=== PATIENT | female | born 1985 | race Caucasian/White ===

== ENCOUNTER 2021-09-19 10:28 | Day surgery (SDC) | payer OTHER ==
--- NOTE | 2021-09-19 08:00 | HP ---
DATE OF SURGERY: 09/19/2021 HISTORY OF PRESENT ILLNESS: The patient is a 35-year-old with some rectal bleeding worse with bowel movement and soreness at times, last colonoscopy ten years ago. Family history negative for colon cancer and negative for Crohn's disease. PAST MEDICAL HISTORY: Conversion disorder and pseudoseizures. PAST SURGICAL HISTORY: Hernia repair. Appendectomy. D&C. Left hip surgery. Right toe surgery. Cholecystectomy. Hernia repair in the past. MEDICATIONS: Klonopin, Viibryd, Propylthiouracil. ALLERGIES: AMPICILLIN. WELLBUTRIN. FAMILY HISTORY: Cancer, diabetes. Negative for colon cancer or Crohn's. SOCIAL HISTORY: One pack per day smoker, denies alcohol abuse. REVIEW OF SYSTEMS: Fourteen systems reviewed. No chest pain or palpitations. Other systems negative or noncontributory as above and per preadmission questionnaire. PHYSICAL EXAMINATION: GENERAL: No acute distress. HEENT: Sclerae nonicteric. NECK: No JVD. CHEST: Equal excursion, nonlabored breathing. CVS: Regular rate and rhythm. ABDOMEN: Soft. No peritoneal signs. EXTREMITIES: No significant edema. NEURO: Alert, oriented, moving extremities symmetrically. RECTAL: Internal and external hemorrhoids grade IV. PSYCH: Appropriate mood and affect. IMPRESSION: Rectal bleeding. The patient is in need of colonoscopy as last one was ten years ago. Colonoscopy to rule out other sources. Additionally, the patient desires excision of internal hemorrhoidectomy. Risks and benefits explained in detail including bleeding or infection, risk of bowel injury or perforation, risk of missed or nondiagnosis or incomplete exam, possibly requiring barium enema, other studies or procedures, general risk of anesthesia or sedation, risk of bowel prep. Regarding hemorrhoidectomy, general risk of bleeding or infection, risk of sphincter irritability, spasm or dysfunction. General risk of anesthesia, deep vein thrombosis, pulmonary embolism, pneumonia, risk of stenosis, risk of bleeding, risk of bleeding or infection, risk of incontinence transient or fpc, as well as the real risk of significant pain usually is transient gradually improves but risk of chronic aches and pains but not limited to. The patient understands and will proceed with colonoscopy under general anesthesia along with excision of internal hemorrhoidectomy as an outpatient.
[2021-09-19] MEDS ORDERED: ANUSOL-HC 2.5% CREAM 30 GM TOP ONE (10:29)
[2021-09-19] MEDS ORDERED: EXPAREL 133 MG/10 ML VIAL IJ ONE (10:29)
[2021-09-19] MEDS ORDERED: Lactated Ringers 1,000 ML IV ONE ×2 (10:51→14:03)
[2021-09-19] MEDS ORDERED: Lactated Ringers 1,000 ML IV SCH (11:00)
[2021-09-19] MEDS ORDERED: Transderm Scop 1.5MG Patch TOP PRN (11:09)
[2021-09-19] MEDS ORDERED: Versed 2 MG/2 ML Injection IV ONE (11:10)
[2021-09-19] MEDS ORDERED: Reglan 10 MG/2 ML IV ONE (11:10)
[2021-09-19] MEDS ORDERED: DIPRIVAN 200 MG/20 ML IV ONE (12:08)
[2021-09-19] MEDS ORDERED: Zofran 4 MG/2 ML VIAL ONE (12:10)
[2021-09-19] MEDS ORDERED: Quelicin Fliptop 200 MG/10 ML ONE (12:10)
[2021-09-19] MEDS ORDERED: Decadron 4 MG INJ ONE (12:10)
[2021-09-19] MEDS ORDERED: Xylocaine-Mpf 2% 5 Ml Vial ONE (12:10)
[2021-09-19] MEDS ORDERED: SUBLIMAZE 100 MCG/2 ML ONE ×2 (12:12→13:52)
[2021-09-19] MEDS ORDERED: CLINDAMYCIN-D5W 900 MG/50 ML*** 900 MG/50 ML BAG IV ONE (12:19)
[2021-09-19] MEDS ORDERED: Ephedrine Sulfate 50 MG/ML ONE (12:45)
[2021-09-19] MEDS ORDERED: Zemuron 100 MG/10 ML ONE (13:06)
[2021-09-19] MEDS ORDERED: BRIDION 200MG/2ML IV ONE (13:21)
[2021-09-19] MEDS ORDERED: Hydromorphone 1 mg/ml Injection ONE (13:52)
[2021-09-19 14:52] VITALS: O2SAT 97
[2021-09-19] MEDS ORDERED: Zofran 4 MG/2 ML VIAL IV ONE (15:10)
[2021-09-19 15:32] VITALS: BP 95/55; PULSE 67
--- NOTE | 2021-09-20 09:38 | OP ---
SURGERY DATE/TIME: 09/19/2021 1231 PREOPERATIVE DIAGNOSIS: Rectal bleeding, history of internal and external hemorrhoids grade III to IV. POSTOPERATIVE DIAGNOSES: 1) Two small polyps, one descending colon and one in the sigmoid colon. 2) Grade IV internal and external hemorrhoids. PROCEDURES: 1) Colonoscopy to cecum. 2) Hot biopsy polypectomy small descending colon polyp. 3) Hot biopsy polypectomy small sigmoid colon polyp. 4) Extensive internal and external excisional hemorrhoidectomy (three columns). SURGEON: Dr. Fabrice Beasley. ANESTHESIA: General along with some Exparel. ESTIMATED BLOOD LOSS: Minimal. INDICATIONS: As noted above. Risks and benefits explained in detail but not limited to and consent obtained. DESCRIPTION OF PROCEDURE AND FINDINGS: The patient is taken to the endoscopy room. General anesthesia induced. After official time out and no disagreement with planned procedure, digital rectal exam did not reveal any rectal masses. She had grade IV internal and external hemorrhoids. Video colonoscope inserted and passed up through the tortuous sigmoid, descending, transverse and ascending colon around to the cecum. Appendiceal orifice and valve well visualized and photo documented. Scope slowly and carefully withdrawn over the next eight minutes. Small polyp in descending colon. Small polyp in the sigmoid colon removed with hot biopsy forceps with brief burst of cautery. Good hemostasis noted. Scope pulled back to the rectum. Prep overall was fair. ASA Class II. She was then repositioned. Prepped and draped in usual sterile fashion. No disagreement with planned procedure. Exparel was injected circumferentially around the perirectal/perianal area. Once this was accomplished starting with the left lateral hemorrhoid column starting on the inside mucosa sliver was incised with scalpel carrying out to the perianal skin including external tags. The internal and external hemorrhoids were carefully dissected off of the internal sphincter and passed off. 3-0 Monocryl was used to close the wound in a running fashion from internal to external. Appeared to have good hemostasis at this point. The patient had a smaller component that was a little bit to the right of the midline right posterior position this is a smaller area. Small sliver of mucosa extending out in the redundant skin externally dissection carried down dissecting hemorrhoid component off of the internal sphincter this was then closed internal to external with 3-0 Monocryl. Good hemostasis noted. Attention is then turned to the other much larger component which right anterior lateral dissecting from inside the mucosa. A small segment of mucosa and excising out to the external skin, this hemorrhoid was carefully dissected off the internal sphincter to the rectal mucosa and closed with running 3-0 Monocryl. Good hemostasis was noted. Additional Exparel was injected around the skin incision. It appeared to have adequate hemostasis. Rectal vault irrigated out. A small piece of Surgicel with some Anusol cream was left in the vault. Sterile dressing. The patient tolerated the procedure well. I went out to look for family out in the waiting area. She is to continue titrate soft, bulky stools, avoid straining when she has a bowel movement. Given a script for [place] and script for Valium for PRN rectal spasm, continue sitz baths.
== END 2021-09-19 15:40 | disposition home or self-care (01) ==
LOC: SDC 10:28
PROVIDERS: ATTEND Surgery
DX: K63.5 Polyp of colon (principal); K62.5 Hemorrhage of anus and rectum; Z87.19 Personal history of other diseases of the digestive system; K64.4 Residual hemorrhoidal skin tags; K64.8 Other hemorrhoids; Z80.9 Family history of malignant neoplasm, unspecified
CPT/HCPCS: 81025; J0330; J1100; J1170; J2250; J2405; J2704; J3010; A9270-GY

== ENCOUNTER 2022-09-10 13:21 | Emergency (ER) | payer OTHER ==
[2022-09-10] MEDS ORDERED: Ativan 2 MG/1 ML VIAL IV ONE (13:29)
--- NOTE | 2022-09-10 13:29 | ERPHSYRPT ---
- History of Present Illness Time Seen by Provider: 09/10/22 13:29 Source: patient, EMS Exam Limitations: no limitations, clinical condition Physician History: This is a 36-year-old white female patient of Dr. Eddy who presents to the emergency department by the community engagement representative service because of seizure activity. The patient has a history of pseudoseizures. However, per patient report, this was related to the patient's thyroid. Patient is on PTU medication to treat Graves' disease (hyperthyroidism). She, upon arrival to the emergency department, was awake alert and oriented but did have a couple of 3 to 5 seconds of tonic-clonic seizure activity. She did not receive any medications from the paramedics. Intravenous lines were placed and no blood was drawn. Patient denies head injury. She states that she is not on any seizure medication. She was riding motorcycle throughout the day today then stop to have lunch which is when she had the symptoms. Intermittently, in the last month the patient and the patient's spouse state that she has been having left lower quadrant abdominal pain and bloody bowel movements. Patient does complain of some left lower quadrant abdominal pain here in the emergency department. She was not incontinent of stool or urine. She denies chest pain. She denies shortness of breath. Accu-Chek blood sugar level by the paramedics was 102 Timing/Duration: today Severity: mild Deficits: no difficulties Baseline/Normal Cognition: alert oriented x 3 Current Cognition: alert oriented x 3 Baseline Gait: walks w/o assistance Associated Symptoms: seizures, other (Left lower quadrant abdominal pain) Allergies/Adverse Reactions: ampicillin [Ampicillin] Allergy (Mild, Verified 10/31/21 16:12) bupropion HCl [From Wellbutrin] Allergy (Mild, Verified 10/31/21 16:12) buspirone [From BuSpar] Allergy (Verified 10/31/21 16:12) morphine Allergy (Verified 10/31/21 16:12) Home Medications: propylthiouraciL [Propylthiouracil] 50 mg PO BID 09/07/21 [History] Hx Tetanus, Diphtheria Vaccination/Date Given: Yes Hx Influenza Vaccination/Date Given: No Hx Pneumococcal Vaccination/Date Given: No Travel Risk - International Travel Have you traveled outside of the country in past 3 weeks: No - Coronavirus Screening Are you exhibiting any of the following symptoms?: No Close contact with a COVID-19 positive Pt in past 14-21 Days: No - Review of Systems Constitutional: No Symptoms Eyes: No Symptoms Ears, Nose, & Throat: No Symptoms Respiratory: No Symptoms Cardiac: No Symptoms Abdominal/Gastrointestinal: Abdominal Pain (Lower quadrant abdominal pain), Nausea Genitourinary Symptoms: No Symptoms Musculoskeletal: No Symptoms Skin: No Symptoms Neurological: Seizure Psychological: No Symptoms Endocrine: No Symptoms Hematologic/Lymphatic: No Symptoms Immunological/Allergic: No Symptoms All Other Systems: Reviewed and Negative - Past Medical History Pertinent Past Medical History: Yes Neurological History: No Pertinent History ENT History: No Pertinent History Cardiac History: No Pertinent History Respiratory History: No Pertinent History Endocrine Medical History: Hyperthyroidism Musculoskeletal History: No Pertinent History GI Medical History: No Pertinent History History: No Pertinent History Psycho-Social History: Anxiety Female Reproductive Disorders: No Pertinent History Other Medical History: positive antonio - Past Surgical History Past Surgical History: Yes Neuro Surgical History: No Pertinent History Cardiac: No Pertinent History Respiratory: No Pertinent History Gastrointestinal: Appendectomy, Cholecystectomy, Hernia Repair Genitourinary: No Pertinent History Female Surgical History: Other Other Surgical History: hernia x 2, - Social History Smoking Status: Current every day smoker How long have you smoked: 6 years Exposure to second hand smoke: Yes Drug Use: none Patient Lives Alone: No - Nursing Vital Signs Nursing Vital Signs: Initial Vital Signs Pulse Rate 76 09/10/22 13:23 Respiratory Rate 15 09/10/22 13:23 Blood Pressure 132/87 09/10/22 13:23 O2 Sat by Pulse Oximetry 98 09/10/22 13:23 Pain Scale Pain Intensity 5 - Ilan Coma Scale Best Eye Response (Ilan): (4) open spontaneously Best Verbal Response (Ilan): (5) oriented Best Motor Response (Lian): (6) obeys commands [place] Total: 15 - Physical Exam General Appearance: no apparent distress, alert, anxiety Eye Exam: bilateral eye: normal inspection, PERRL, EOMI Ears, Nose, Throat Exam: normal ENT inspection, moist mucous membranes Neck Exam: normal inspection, non-tender, supple, full range of motion Respiratory: normal breath sounds, lungs clear, airway intact, No chest tenderness, No respiratory distress Cardiovascular: regular rate/rhythm, normal heart sounds, normal peripheral pulses Gastrointestinal: soft, normal bowel sounds, tenderness (Lower quadrant), guarding (Left lower quadrant to palpation), No rebound Pelvic Exam: not done Rectal Exam: not done Back Exam: normal inspection, normal range of motion, No CVA tenderness, No vertebral tenderness Extremity Exam: normal inspection, normal range of motion, pelvis stable Mental Status: alert, oriented x 3, 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 Exam: normal hearing, normal speech, PERRL Coordination/Gait: normal finger to nose, normal gait, normal cerebellar function Motor/Sensory: no motor deficit, no sensory deficit, no pronator drift Skin Exam: normal color, warm, dry SpO2 Interpretation: normal O2 Delivery: Room Air - Course Nursing assessment & vital signs reviewed: Yes EKG Interpreted by Me: RATE (81), Sinus Rhythm, NORMAL AXIS, NORMAL INTERVALS, NORMAL QRS, NORMAL ST-T, Other (No acute ischemic changes on today's twelve-lead EKG) Ordered Tests: Active Orders 24 hr Category Date Time Status Prepared Foods Team Leader STAT Care 09/10/22 13:30 Active Clean Catch Urine Specimen STAT Care 09/10/22 13:29 Active EKG-ER Only STAT Care 09/10/22 13:29 Active IV Insertion STAT Care 09/10/22 13:29 Active Pulse Oximetry (ED) STAT Care 09/10/22 13:29 Active ABDOMEN AND PELVIS W/0 CONTRAS [CT] Stat Exams 09/10/22 14:33 Completed HEAD WITHOUT CONTRAST [CT] Stat Exams 09/10/22 14:31 Completed BLOOD CULTURE Stat Lab 09/10/22 14:15 Received CBC W DIFF Stat Lab 09/10/22 14:00 Completed CMP Stat Lab 09/10/22 14:00 Completed HCG QUALITATIVE, SERUM Stat Lab 09/10/22 14:00 Completed Lactic Acid Stat Lab 09/10/22 13:29 Completed T4 (Thyroxine) Stat Lab 09/10/22 14:00 Completed TSH [TSH, 3RD Generation] Stat Lab 09/10/22 14:00 Completed UA W/RFX UR CULTURE Stat Lab 09/10/22 15:11 Completed Urine Triage Profile Stat Lab 09/10/22 15:11 Completed Medication Summary Generic Name Dose Route Start Last Admin Trade Name Freq PRN Reason Stop Dose Admin Sodium Chloride 1,000 mls @ 100 mls/hr 09/10/22 13:30 09/10/22 13:47 Sodium Chloride 0.9% 1000 Ml IV 10/10/22 13:29 100 mls/hr .Q10H ROBBIE Administration Discontinued Medications Generic Name Dose Route Start Last Admin Trade Name Florentin PRN Reason Stop Dose Admin Hydromorphone HCl 1 mg 09/10/22 13:53 09/10/22 14:09 Hydromorphone 1 Mg/1ml Inj IV 09/10/22 13:54 1 mg STAT ONE Administration Hydromorphone HCl Confirm 09/10/22 13:56 Hydromorphone 1 Mg/1ml Inj Administered 09/10/22 13:57 Dose 1 mg .ROUTE .STK-MED ONE Lorazepam 1 mg 09/10/22 13:29 09/10/22 13:46 Lorazepam 2 Mg/1 Ml 2 Mg Vial IV 09/10/22 13:30 1 mg STAT ONE Administration Lorazepam Confirm 09/10/22 13:44 Lorazepam 2 Mg/1 Ml 2 Mg Vial Administered 09/10/22 13:45 Dose 2 mg .ROUTE .STK-MED ONE Ondansetron HCl Confirm 09/10/22 13:46 Ondansetron Hcl 4 Mg/2 Ml Vial Administered 09/10/22 13:47 Dose 4 mg .ROUTE .STK-MED ONE Ondansetron HCl 4 mg 09/10/22 13:48 09/10/22 13:48 Ondansetron Hcl 4 Mg/2 Ml Vial IV 09/10/22 13:49 4 mg STAT ONE Administration Lab/Rad Data: Laboratory Result Diagrams 09/10/22 14:00 09/10/22 14:00 Laboratory Results 09/10/22 09/10/22 09/10/22 Range/Units 15:11 15:11 14:00 WBC (4.0-10.5) x10^3/uL RBC (4.1-5.4) x10^6/uL Hgb (12.0-16.0) g/dL Hct (35-47) % MCV (78-100) fL MCH (26-32) pg MCHC (32-36) g/dL RDW (11.5-14.0) % Plt Count (150-450) x10^3/uL MPV (7.5-11.0) fL Gran % (36.0-66.0) % Immature Gran % (Auto) (0.00-0.4) % Nucleat RBC Rel Count (0.00-0.1) % Eos # (Auto) (0-0.5) x10^3/uL Immature Gran # (Auto) (0.00-0.03) x10^3u/L Absolute Lymphs (auto) (1.0-4.6) x10^3/uL Absolute Monos (auto) (0.0-1.3) x10^3/uL Absolute Nucleated RBC (0.00-0.01) x10^3u/L Lymphocytes % (24.0-44.0) % Monocytes % (0.0-12.0) % Eosinophils % (0.00-5.0) % Basophils % (0.0-0.4) % Absolute Granulocytes (1.4-6.9) x10^3/uL Basophils # (0-0.4) x10^3/uL Sodium (137-145) mmol/L Potassium (3.5-5.1) mmol/L Chloride (98-107) mmol/L Carbon Dioxide (22-30) mmol/L Anion Gap (5-15) MEQ/L BUN (7-17) mg/dL Creatinine (0.52-1.04) mg/dL Estimated GFR ML/MIN Glucose (74-106) mg/dL Lactic Acid (0.4-2.0) Calcium (8.4-10.2) mg/dL Total Bilirubin (0.2-1.3) mg/dL AST (14-36) U/L ALT (0-35) U/L Alkaline Phosphatase (38-126) U/L Serum Total Protein (6.3-8.2) g/dL Albumin (3.5-5.0) g/dL Thyroxine (T4) 8.63 (5.53-10.96) ug/dL TSH 3rd Generation (0.47-4.68) mIU/L Serum HCG, Qual (NEGATIVE) Urine Color Yellow (Yellow) Urine Appearance Clear (Clear) Urine pH 6.5 (4.6-8.0) Ur Specific [place] <=1.005 (1.005-1.030) Urine Protein Negative (Negative) Urine Glucose (UA) Negative (Negative) mg/dL Urine Ketones Negative (Negative) Urine Blood Negative (Negative) Urine Nitrite Negative (Negative) Urine Bilirubin Negative (Negative) Urine Urobilinogen 0.2 (0.2) mg/dL Ur Leukocyte Esterase Negative (Negative) U Hyaline Cast (Auto) NONE SEEN (0-2) /LPF Urine Microscopic RBC 0-2 (0-5) /HPF Urine Microscopic WBC 0-2 (0-5) /HPF Ur Epithelial Cells None Seen (None Seen) /HPF Urine Bacteria None Seen (None Seen) /HPF Urine Culture Reflexed NO (NO) Urine Opiates Level NEGATIVE (NEGATIVE) Ur Methadone NEGATIVE (NEGATIVE) Urine Barbiturates NEGATIVE (NEGATIVE) Ur Phencyclidine (PCP) NEGATIVE (NEGATIVE) Urine Amphetamine NEGATIVE (NEGATIVE) U Benzodiazepine Level NEGATIVE (NEGATIVE) Urine Cocaine NEGATIVE (NEGATIVE) Urine Marijuana (THC) NEGATIVE (NEGATIVE) 09/10/22 09/10/22 09/10/22 Range/Units 14:00 14:00 14:00 WBC (4.0-10.5) x10^3/uL RBC (4.1-5.4) x10^6/uL Hgb (12.0-16.0) g/dL Hct (35-47) % MCV (78-100) fL MCH (26-32) pg MCHC (32-36) g/dL RDW (11.5-14.0) % Plt Count (150-450) x10^3/uL MPV (7.5-11.0) fL Gran % (36.0-66.0) % Immature Gran % (Auto) (0.00-0.4) % Nucleat RBC Rel Count (0.00-0.1) % Eos # (Auto) (0-0.5) x10^3/uL Immature Gran # (Auto) (0.00-0.03) x10^3u/L Absolute Lymphs (auto) (1.0-4.6) x10^3/uL Absolute Monos (auto) (0.0-1.3) x10^3/uL Absolute Nucleated RBC (0.00-0.01) x10^3u/L Lymphocytes % (24.0-44.0) % Monocytes % (0.0-12.0) % Eosinophils % (0.00-5.0) % Basophils % (0.0-0.4) % Absolute Granulocytes (1.4-6.9) x10^3/uL Basophils # (0-0.4) x10^3/uL Sodium 140 (137-145) mmol/L Potassium 4.2 (3.5-5.1) mmol/L Chloride 104 (98-107) mmol/L Carbon Dioxide 26 (22-30) mmol/L Anion Gap 14.5 (5-15) MEQ/L BUN 8 (7-17) mg/dL Creatinine 0.81 (0.52-1.04) mg/dL Estimated GFR > 60.0 ML/MIN Glucose 101 (74-106) mg/dL Lactic Acid (0.4-2.0) Calcium 9.4 (8.4-10.2) mg/dL Total Bilirubin 0.70 (0.2-1.3) mg/dL AST 23 (14-36) U/L ALT 17 (0-35) U/L Alkaline Phosphatase 28 L (38-126) U/L Serum Total Protein 7.8 (6.3-8.2) g/dL Albumin 4.7 (3.5-5.0) g/dL Thyroxine (T4) (5.53-10.96) ug/dL TSH 3rd Generation 1.300 (0.47-4.68) mIU/L Serum HCG, Qual NEGATIVE (NEGATIVE) Urine Color (Yellow) Urine Appearance (Clear) Urine pH (4.6-8.0) Ur Specific [place] (1.005-1.030) Urine Protein (Negative) Urine Glucose (UA) (Negative) mg/dL Urine Ketones (Negative) Urine Blood (Negative) Urine Nitrite (Negative) Urine Bilirubin (Negative) Urine Urobilinogen (0.2) mg/dL Ur Leukocyte Esterase (Negative) U Hyaline Cast (Auto) (0-2) /LPF Urine Microscopic RBC (0-5) /HPF Urine Microscopic WBC (0-5) /HPF Ur Epithelial Cells (None Seen) /HPF Urine Bacteria (None Seen) /HPF Urine Culture Reflexed (NO) Urine Opiates Level (NEGATIVE) Ur Methadone (NEGATIVE) Urine Barbiturates (NEGATIVE) Ur Phencyclidine (PCP) (NEGATIVE) Urine Amphetamine (NEGATIVE) U Benzodiazepine Level (NEGATIVE) Urine Cocaine (NEGATIVE) Urine Marijuana (THC) (NEGATIVE) 08/06/23 08/06/23 Range/Units 14:00 13:29 WBC 4.9 (4.0-10.5) x10^3/uL RBC 4.81 (4.1-5.4) x10^6/uL Hgb 13.4 (12.0-16.0) g/dL Hct 41.6 (35-47) % MCV 86.5 (78-100) fL MCH 27.9 (26-32) pg MCHC 32.2 (32-36) g/dL RDW 12.7 (11.5-14.0) % Plt Count 176 (150-450) x10^3/uL MPV 11.0 (7.5-11.0) fL Gran % 62.2 (36.0-66.0) % Immature Gran % (Auto) 0.2 (0.00-0.4) % Nucleat RBC Rel Count 0.0 (0.00-0.1) % Eos # (Auto) 0.08 (0-0.5) x10^3/uL Immature Gran # (Auto) 0.01 (0.00-0.03) x10^3u/L Absolute Lymphs (auto) 1.30 (1.0-4.6) x10^3/uL Absolute Monos (auto) 0.44 (0.0-1.3) x10^3/uL Absolute Nucleated RBC 0.00 (0.00-0.01) x10^3u/L Lymphocytes % 26.3 (24.0-44.0) % Monocytes % 8.9 (0.0-12.0) % Eosinophils % 1.6 (0.00-5.0) % Basophils % 0.8 (0.0-0.4) % Absolute Granulocytes 3.07 (1.4-6.9) x10^3/uL Basophils # 0.04 (0-0.4) x10^3/uL Sodium (137-145) mmol/L Potassium (3.5-5.1) mmol/L Chloride (98-107) mmol/L Carbon Dioxide (22-30) mmol/L Anion Gap (5-15) MEQ/L BUN (7-17) mg/dL Creatinine (0.52-1.04) mg/dL Estimated GFR ML/MIN Glucose (74-106) mg/dL Lactic Acid 1.8 (0.4-2.0) Calcium (8.4-10.2) mg/dL Total Bilirubin (0.2-1.3) mg/dL AST (14-36) U/L ALT (0-35) U/L Alkaline Phosphatase (38-126) U/L Serum Total Protein (6.3-8.2) g/dL Albumin (3.5-5.0) g/dL Thyroxine (T4) (5.53-10.96) ug/dL TSH 3rd Generation (0.47-4.68) mIU/L Serum HCG, Qual (NEGATIVE) Urine Color (Yellow) Urine Appearance (Clear) Urine pH (4.6-8.0) Ur Specific [place] (1.005-1.030) Urine Protein (Negative) Urine Glucose (UA) (Negative) mg/dL Urine Ketones (Negative) Urine Blood (Negative) Urine Nitrite (Negative) Urine Bilirubin (Negative) Urine Urobilinogen (0.2) mg/dL Ur Leukocyte Esterase (Negative) U Hyaline Cast (Auto) (0-2) /LPF Urine Microscopic RBC (0-5) /HPF Urine Microscopic WBC (0-5) /HPF Ur Epithelial Cells (None Seen) /HPF Urine Bacteria (None Seen) /HPF Urine Culture Reflexed (NO) Urine Opiates Level (NEGATIVE) Ur Methadone (NEGATIVE) Urine Barbiturates (NEGATIVE) Ur Phencyclidine (PCP) (NEGATIVE) Urine Amphetamine (NEGATIVE) U Benzodiazepine Level (NEGATIVE) Urine Cocaine (NEGATIVE) Urine Marijuana (THC) (NEGATIVE) - Progress Progress: improved, pain not gone completely, re-examined Progress Note: 09/10/22 16:29 CT scan of the head without contrast was interpreted by the radiologist and I reviewed the interpretation. There is no evidence of any acute intracranial abnormality. CT scan of the abdomen pelvis without contrast shows a periumbilical fatty hernia with fat stranding present but without incarceration of bowel. There is also mild hepatomegaly present. 09/10/22 16:30 This patient's medical issue is 1 of moderate complexity. The level complexity and the work-up performed is based on review of the patient's past medical history, review of the patient's medication list, review of the patient drug allergy list, history of present illness and physical findings on examination. Work-up in this patient includes CT scan of the head, twelve-lead EKG, CBC, CMP, urinalysis, CT scan of the abdomen pelvis. I reviewed the results of the work- up. There is no evidence of any acute, emergent medical issue. Patient will be discharged home with instructions to follow-up with her prescribing provider for further evaluation of and management of pseudoseizures, abdominal pain. Counseled pt/family regarding: lab results, diagnosis, need for follow-up, rad results Medical Desision Making - Independent Historian Additional History obtained from: Spouse, Computer Mechanic/EMT - Diagnostic Testing Diagnostic test were ordered, analyzed, and reviewed by me: Yes Radiological Interpretation: Reviewed by me, Teleradiologist Report - Risk of complications Low Risk: Low risk of morbidity from additional dx testing or treatment - Departure Departure Disposition: Home Clinical Impression: Seizure, Left lower quadrant abdominal pain Condition: Stable Critical Care Time: No Referrals: MERRILL EDDY MD [Primary Care Provider] - Follow up/PCP as directed Additional Instructions: Drink plenty of fluids. Call your primary care provider tomorrow morning on 08/11/2022, for further evaluation and management of your seizure issue and the left lower quadrant abdominal pain. Take all your medications as prescribed.
[2022-09-10] MEDS ORDERED: Sodium Chloride 0.9% 1000 ML 1,000 ML IV SCH (13:30)
[2022-09-10] MEDS ORDERED: Sodium Chloride 0.9% 1000 ML 1,000 ML ONE (13:44)
[2022-09-10] MEDS ORDERED: Ativan 2 MG/1 ML VIAL ONE (13:44)
[2022-09-10] MEDS ORDERED: Zofran 4 MG/2 ML VIAL ONE (13:46)
[2022-09-10] MEDS ORDERED: Zofran 4 MG/2 ML VIAL IV ONE (13:48)
[2022-09-10] MEDS ORDERED: Hydromorphone 1 mg/ml Injection IV ONE (13:53)
[2022-09-10] MEDS ORDERED: Hydromorphone 1 mg/ml Injection ONE (13:56)
[2022-09-10 14:24] LABS: Absolute Neutrophil Ct (ANC) 3.07 x10^3/uL (1.4-6.9); BASOPHIL % 0.8 % (0.0-0.4); Basophil (Absolute #) 0.04 x10^3/uL (0-0.4); Eosinophil % 1.6 % (0.00-5.0); Eosinophil (Absolute #) 0.08 x10^3/uL (0-0.5); Hematocrit 41.6 % (35-47); Hemoglobin 13.4 g/dL (12.0-16.0); IMMATURE GRAN # 0.01 x10^3u/L (0.00-0.03); IMMATURE GRAN % 0.2 % (0.00-0.4); Lymphocytes % 26.3 % (24.0-44.0); Mean Cell Volume 86.5 fL (78-100); Mean Corpuscular Hemoglobin 27.9 pg (26-32); Mean Corpuscular Hgb Concent. 32.2 g/dL (32-36); Monocyte (Absolute #) 0.44 x10^3/uL (0.0-1.3); Monocytes % 8.9 % (0.0-12.0); Neutrophil % 62.2 % (36.0-66.0); Platelet Count 176 x10^3/uL (150-450); Red Blood Count 4.81 x10^6/uL (4.1-5.4); Red Cell Distribution Width 12.7 % (11.5-14.0); White Blood Count 4.9 x10^3/uL (4.0-10.5)
[2022-09-10 14:33] LABS: HCG SERUM TEST NEGATIVE (NEGATIVE)
[2022-09-10 14:38] LABS: ALBUMIN 4.7 g/dL (3.5-5.0); ALKALINE PHOSPHATASE 28 U/L (38-126); ANION GAP 14.5 MEQ/L (5-15); BLOOD UREA NITROGEN 8 mg/dL (7-17); CHLORIDE 104 mmol/L (98-107); Calcium 9.4 mg/dL (8.4-10.2); Carbon Dioxide 26 mmol/L (22-30); Creatinine 1 0.81 mg/dL (0.52-1.04); EST GLOMERULAR FILTRATION RATE > 60.0 ML/MIN; Glucose 101 mg/dL (74-106); Potassium 4.2 mmol/L (3.5-5.1); SGOT/AST 23 U/L (14-36); SGPT/ALT 17 U/L (0-35); SODIUM 140 mmol/L (137-145); Total Protein 7.8 g/dL (6.3-8.2)
[2022-09-10 15:22] LABS: Appearance Clear (Clear); Bacteria None Seen /HPF (None Seen); Bilirubin Negative (Negative); Blood Negative (Negative); Epithelial Cells None Seen /HPF (None Seen); Glucose, Urine Negative (Negative); Hyaline Casts NONE SEEN /LPF (0-2); Ketones Negative (Negative); Leukocyte Esterase Negative (Negative); Nitrite Negative (Negative); Ph 6.5 (4.6-8.0); Protein,Urine Dip Negative (Negative); RBC 0-2 /HPF (0-5); Specific Gravity <=1.005 (1.005-1.030); Urobilinogen 0.2 mg/dL (0.2); WBC 0-2 /HPF (0-5)
[2022-09-10 15:24] LABS: ADD URINE CULTURE? NO (NO)
[2022-09-10 15:32] LABS: Amphetamine,Urine NEGATIVE (NEGATIVE); Barbiturate,Urine NEGATIVE (NEGATIVE); Benzodiazepine,Urine NEGATIVE (NEGATIVE); Cocaine,Urine NEGATIVE (NEGATIVE); Methadone,Urine NEGATIVE (NEGATIVE); Opiate,Urine NEGATIVE (NEGATIVE); PCP,Urine NEGATIVE (NEGATIVE); THC,Urine NEGATIVE (NEGATIVE)
--- NOTE | 2022-09-10 15:45 | XRAY ---
CLINICAL HISTORY:Seizure COMPARISON:None. TECHNIQUE:CT of the brain was performed without contrast in axial plane. Sagittal and coronal reconstructions were also obtained. FINDINGS: Normal CT features and attenuation values of the brain parenchyma. No focal lesion is detected. Normal appearance and configuration of the cortical sulci over the surface of both cerebral hemispheres. Central midline structures. Normal size and configuration of the supra and infratentorial ventricular systems. Normal appearance of the posterior fossa structures. No intra or extra-axial collections are seen. Normal bony features of the calvarium and skull base. IMPRESSION: Unremarkable study, for MRI evaluation. Electronically Signed by: Victoria Larson MD. (09/10/2022 14:43:31 SENIOR MECHANICAL TECHNICIAN)
[2022-09-10 15:51] VITALS: RESP 18
--- NOTE | 2022-09-10 16:11 | XRAY ---
CLINICAL HISTORY:llq abd COMPARISON:None. TECHNIQUE:CT scan of the abdomen and pelvis was performed without contrast. Sagittal and coronal reconstructed images were also obtained. FINDINGS: Small para-umbilical fatty hernia is seen measuring 3.2x 2x 1.9 cm. No evidence of bowel content inside, but fat stranding is detected. Liver and biliary tree: Mild hepatomegaly (liver span 16.3 cm). No liver lesion is seen. GB is surgically excised. Spleen: Unremarkable Adrenal glands: Unremarkable. Pancreas: Unremarkable. Kidneys and ureters: Unremarkable. No renal stone cysts or hydronephrosis is detected. Stomach and bowel: No abnormality detected. Retroperitoneum: Unremarkable. Lymph nodes: No evidence of lymphadenopathy. Skeletal system: No suspicious bony lesion detected. Bladder: No definite focal lesion detected. Uterus and both adnexa are normal. Basal thoracic cuts: Clear lung bases. IMPRESSION: 1. Para-umbilical fatty hernia with minimal fat stranding but no evidence of incarceration, inflammatory process to be considered. 2. Mild hepatomegaly. Fatty infiltration to be considered. Electronically Signed by: Victoria Lasron MD. (09/10/2022 15:09:34 MEDIA MANAGER)
[2022-09-10] MEDS ORDERED: TYLENOL 325 MG PO STA (16:47)
[2022-09-10] MEDS ORDERED: TYLENOL 325 MG ONE (16:48)
[2022-09-10 16:49] VITALS: BP 146/59; PULSE 77; O2SAT 98
== END 2022-09-10 16:57 | disposition home or self-care (01) ==
LOC: ED 13:21
DX: R56.9 Unspecified convulsions (principal); R10.32 Left lower quadrant pain; Z79.899 Other long term (current) drug therapy; Z72.0 Tobacco use
CPT/HCPCS: 36415; 70450; 74176; 80053; 80307; 81001; 83605; 84436; 84443; 84703; 85025; 87040; 93005; 93041; 94760; 96374; 96375; 99284; J1170; J2060; J2405; A9270-GY

== ENCOUNTER 2023-07-09 08:55 | Day surgery (SDC) | payer OTHER ==
--- NOTE | 2023-07-09 09:04 | HP ---
DATE OF SURGERY: 07/09/2023 HISTORY OF PRESENT ILLNESS: The patient is a 37-year-old has epigastric Charley horse-like aches and pains. CT scan no evidence of recurrent ventral hernia. Normal sonogram. She last took diet medication Adipex per patient. PAST MEDICAL HISTORY: Anxiety, diabetes, thyroid disease, diverticular disease. Hiatal hernia in the past. PAST SURGICAL HISTORY: Endoscopy. Cholecystectomy. Appendectomy. Hiatal hernia surgery in 2019. She had tubal in the past. MEDICATIONS: Phentermine, Clonazepam, Propylthiouracil. ALLERGIES: AMPICILLIN. BUSPAR. MORPHINE. WELLBUTRIN. FAMILY HISTORY: Cancer, diabetes, heart disease, Crohn's disease. SOCIAL HISTORY: Former smoking. No alcohol abuse. REVIEW OF SYSTEMS: Twelve systems reviewed. No chest pain or palpitations. Other systems negative or noncontributory as above and per preadmission questionnaire. PHYSICAL EXAMINATION: Height 5 feet 1 inch. BMI 32. GENERAL: No acute distress. HEENT: Sclerae nonicteric. EOMI. Oral mucous membranes moist. NECK: No JVD. CHEST: Equal excursion, nonlabored breathing. CVS: Regular rate and rhythm. ABDOMEN: Soft. Scar from ventral hernia repair. EXTREMITIES: No cyanosis or edema. NEURO: Alert, oriented, moving extremities symmetrically. PSYCH: Appropriate mood and affect. SKIN: Dry. IMPRESSION: Epigastric pain. CT findings reviewed. No ventral hernia recurrence. Question of small hiatal hernia, need EGD to evaluate for esophagitis, peptic ulcer disease or gastritis needs EGD possible biopsy. Risks explained in detail but not limited to bleeding or infection, risk of bowel injury or perforation possibly requiring further procedure, risk of missed or nondiagnosis or incomplete exam, possibly requiring barium swallow, other studies or procedures. General risk of anesthesia or sedation. Will proceed with EGD, possible biopsy as an outpatient. Otherwise, continue medications for thyroid disease.
[2023-07-09] MEDS ORDERED: Lactated Ringers 1,000 ML IV ONE (09:30)
[2023-07-09] MEDS: Lactated Ringers 1,000 ML IV SCH (09:31)
[2023-07-09 09:41] LABS: HCG URINE TEST NEGATIVE (NEGATIVE)
[2023-07-09 09:50] VITALS: RESP 16
[2023-07-09] MEDS ORDERED: DIPRIVAN 200 MG/20 ML IV ONE (11:50)
[2023-07-09] MEDS ORDERED: Versed 2 MG/2 ML Injection ONE (11:51)
[2023-07-09 12:45] VITALS: TEMP 97.8
[2023-07-09 12:55] VITALS: BP 143/86; PULSE 67; O2SAT 100
--- NOTE | 2023-07-09 15:27 | OP ---
SURGERY DATE/TIME: 07/09/2023 1208 PREOPERATIVE DIAGNOSIS: Epigastric pain Charley horse sensation need for upper endoscopy to evaluate for esophagitis, peptic ulcer disease, gastritis, or other etiology. POSTOPERATIVE DIAGNOSES: 1) Mild gastritis. 2) Short segment distal esophagitis and superficial erosion. 3) Tiny hiatal weakness or tiny hiatal hernia. 4) Gastric polyp. 5) ASA Class III. PROCEDURES: 1) EGD with cold biopsy of antrum for Helicobacter pylori. 2) Cold biopsy gastric polyp. 3) Cold biopsy distal esophagus to evaluate for esophagitis. SURGEON: Dr. Caesar Beasley M.D. ANESTHESIA: MAC. QUANTITATIVE BLOOD LOSS: Minimal. INDICATIONS: As noted above, consent obtained. DESCRIPTION OF PROCEDURE AND FINDINGS: The patient is taken to the endoscopy room. MAC anesthesia introduced. After official time out and no disagreement with planned procedure, a bite block positioned. Video gastroscope easily passed down the esophagus through the patent pylorus to the second and third portion of the duodenum. The duodenum grossly unremarkable. The scope pulled back in the stomach and there were some petechial hemorrhages with some mild gastritis. Cold biopsy taken to evaluate for Helicobacter pylori. Good hemostasis noted. On retroflex, there was a very tiny weakness of the hiatus measuring 0.5 cm next to the scope. No signs of any large hiatal hernia. The scope was straightened. Gastroesophageal junction about 38 cm. There were a few fingerlettes of some distal esophagitis. Multiple cold biopsies taken to evaluate for esophagitis. The remainder of the esophagus is grossly unremarkable. The scope is withdrawn. The patient tolerated the procedure well. There were no immediate complications. Findings discussed with the family out in the waiting area.
== END 2023-07-09 13:00 | disposition home or self-care (01) ==
LOC: SDC 08:55
PROVIDERS: ATTEND Surgery
DX: K29.70 Gastritis, unspecified, without bleeding (principal); R10.13 Epigastric pain; K20.90 Esophagitis, unspecified without bleeding; K44.9 Diaphragmatic hernia without obstruction or gangrene; K31.7 Polyp of stomach and duodenum; Z80.8 Family history of malignant neoplasm of other organs or systems
CPT/HCPCS: 81025; J2250; J2704